=== PATIENT | female | born 1965 | race Caucasian/White ===

== ENCOUNTER → 2017-03-27 | Outpatient (CLI) | payer BC ==
--- NOTE | 2017-03-27 17:45 | PCVCIMAG ---
APPROVED REPORT Exam: Stress Echocardiogram Indication: Palpitations , Family Hx CAD Patient Location: Echo lab Stress Nurse: Mariajose Mishra RN Room #: 2 Ht: 5 ft 3 in HR: 78 bpm BP: 122/76 mmHg Rhythm: NSR Medical History Cardiac Risk Factors: FHX of CAD Previous Cardiac Procedures: none Pretest Chest Pain Characteristics: No chest pain Exercise History: Physically active Procedure The patient underwent an Exercise Stress Test using the Hugo Protocol. Blood pressure, heart rate, and EKG were monitored. An Echocardiogram was performed by research and development technician in four stages in quad fashion. At peak stress, four selected images were obtained and placed side by side with resting images for comparison. Stress Test Details Stress Test: Exercise stress testing was performed using a Hugo protocol. HR Resting HR: 76 bpmMax Heart Rate (APMHR): 167 bpm Max HR Achieved: 160 bpmTarget HR (85% APMHR): 141 bpm % of APMHR: 95 Recovery HR: 89 bpm HR response to stress: Normal HR response to stress BP Resting BP: 122/76 mmHg Max BP: 168/80 mmHg Recovery BP: 116/80 mmHg ECG Resting ECG: Sinus Rhythm Stress ECG: Sinus Rhythm ST Change: Upsloping ST depression, Non-ischemic Maximum ST Deviation: 0.6 mm Arrhythmia: Rare PVCs Recovery ECG: Sinus Rhythm Recovery ST Change: Non-ischemic Recovery Arrhythmia: none Clinical Reason for Termination: Maximal effort Stress Symptoms: none Exercise duration: 10 min 29 sec Exercise capacity: 13.4 METs Angina Score: None Stress ECG Conclusion The patient exercised according to the Hugo protocol for 10:29 mins; achieving a work level of 13.4 METS. The resting heart rate of 76 bpm maribel to a maximal heart rate of 160 bpm. This value represents 95% of the maximal, age-predicted heart rate. The resting blood pressure of 122/76 mmHg, maribel to a maximum of 168/80 mmHg. The exercise test was stopped due to fatigue. Gonzalez Treadmill Score is 7.0 which is Low risk. Pre-Stress Echo The resting Echocardiogram showed normal left ventricular contractility with an estimated Ejection Fraction of about 55-60%. Normal wall motion in all segments on baseline images. Post-Stress Echo The stress Echocardiogram showed normal left ventricular contractility with an estimated Ejection Fraction of about 65-70%. Normal augmentation of wall motion in all segments on post stress images. Clinical No clinical or ECG evidence for ischemia. Conclusion Clinical Response: Non-ischemic Exercise Capacity: Superior Stress ECG Response: Non-ischemic Stress Echo Images: Non-ischemic No clinical, EKG or echocardiographic evidence for ischemia. No echocardiographic evidence for exercise induced ischemia. Normal stress echocardiogram with maximal exercise stress. <Conclusion> No clinical, EKG or echocardiographic evidence for ischemia. No echocardiographic evidence for exercise induced ischemia. Normal stress echocardiogram with maximal exercise stress.
== END ==
LOC: PCVCIMAG 10:40
PROVIDERS: ATTEND Internal Medicine Cardiovascular Disease
DX: R00.1 Bradycardia, unspecified (principal); Z82.49 Family history of ischemic heart disease and other diseases of the circulatory system
CPT/HCPCS: 93325; 93351

== ENCOUNTER → 2019-02-05 | Outpatient (CLI) | payer BC ==
--- NOTE | 2019-02-05 20:22 | PCVCIMAG ---
EXAM: BILATERAL RENAL ULTRASOUND AND BILATERAL RENAL DUPLEX INDICATION: Hypertension FINDINGS: Right kidney: Length measures 9.7 cm. No hydronephrosis or extensive renal scarring. Right renal duplex: Adequate technical quality. No sonographic evidence of renal artery stenosis. The aortic to renal artery ratio is 2.9. The renal vein is patent. Left kidney: Length measures 9.6 cm. No hydronephrosis or extensive renal scarring. Left renal duplex: Adequate technical quality. No sonographic evidence of renal artery stenosis. The aortic to renal artery ratio is 2.2. The renal vein is patent. Bladder: No obvious abnormalities. IMPRESSION: No significant renal artery stenosis. No hydronephrosis bilaterally. LOC:[id number]
== END | disposition home or self-care (01) ==
LOC: PCVCIMAG 13:08
PROVIDERS: ATTEND Internal Medicine Cardiovascular Disease
DX: I10 Essential (primary) hypertension (principal)
CPT/HCPCS: 76770; 93975